=== PATIENT | female | born 1980 | race Caucasian/White ===

== ENCOUNTER 2020-05-26 11:11 | Outpatient (CLI) | payer OTHER ==
[2020-05-27 11:45] LABS: SARS-CoV-2 MS2 Positive; SARS-CoV-2 N Gene Negative; SARS-CoV-2 S Gene Negative; SARS-CoV-2 orf1ab Negative
== END 2020-05-26 11:12 | disposition home or self-care (01) ==
LOC: LABBT 11:11
PROVIDERS: ATTEND Internal Medicine Cardiovascular Disease
DX: Z01.812 Encounter for preprocedural laboratory examination (principal); Z11.59 Encounter for screening for other viral diseases; Z45.018 Encounter for adjustment and management of other part of cardiac pacemaker
CPT/HCPCS: 87635; U0003